=== PATIENT | male | born 1995 | race Caucasian/White ===

== ENCOUNTER 2021-05-01 12:47 | Outpatient (RCR) | payer BC, SELFPAY | END 2021-06-05 23:59 | LOC: IMMUN 12:47 | PROVIDERS: PCP Family Medicine; Referring Provider Family Medicine; Visit Provider Family Medicine | DX: Z23 Encounter for immunization (principal) ==

== ENCOUNTER 2024-11-26 00:12 | Emergency (ER) | payer BC, SELFPAY ==
[2024-11-26 00:13] VITALS: BP 163/94; PULSE 82; RESP 18; TEMP 36.9; O2SAT 98; BMI 26.4
--- NOTE | 2024-11-26 00:45 | EX.ED.VIS.EY ---
HPI History of Present Illness Chief Complaint: Eye Problem Informant: patient and spouse/S.O. Narrative Narrative: Patient is a 29-year-old male with history of hypertension. He denies any need for contact lenses or glasses. He states over the last 3 days he has felt like there has been something in the upper portion of his right eye. He denies any high risk activities such as grinding metal or chipping wood. He states he has noticed swelling to the right eyelid but denies any direct trauma. He denies any increased tearing or light sensitivity or change in vision. Secondary to the persistent symptoms he presents for evaluation [facility] Medical History (Updated 11/26/24 @ 04:[address] Ganga Alcocer, DO) HTN (hypertension) Medical History no medical history Home Medications ?Medication ?Instructions ?Recorded ?Last Taken ?Type benzonatate 200 mg capsule 200 mg PO TID PRN cough #14 caps 11/07/23 Unknown Rx methylprednisolone 4 mg tablets in See Rx Instructions PO PER PKG DIR 11/07/23 Unknown Rx a dose pack (Medrol (Pa)) #21 tabs ibuprofen 600 mg tablet 600 mg PO TID 11/26/24 Unknown History [id number] 3.5 2 drp RIGHT EYE 4X/DAY 10 days #5 11/26/24 Unknown Rx mg/mL-10,000 unit/mL-0.1% eye mL drops (Maxitrol) Allergy/AdvReac Type Severity Reaction Status Date / Time macadamia nut oil Allergy Severe Anaphylaxis Verified 11/26/24 00:13 Family History no significant family his Surgical History (Updated 11/04/23 @ 16:39 by Ann Stewart) No pertinent past surgical history Surgical History no surgical history Social History (Updated 11/04/23 @ 16:39 by Ann Stewart) Smoking Status: Never smoker alcohol intake: never substance use type: does not use ROS ROS ED Constitutional Constitutional ED: Denies chills or fever(s) Eyes Eyes: Reports other Details: Positive right eye pain ; Denies blurry vision or change in vision ENT ENT ED: Denies rhinorrhea or sore throat Cardiovascular Cardiovascular: Denies chest pain Respiratory/Chest Respiratory/Chest: Denies cough or dyspnea Gastrointestinal Gastrointestinal: Denies abdominal pain, diarrhea, nausea or vomiting Musculoskeletal Musculoskeletal: Denies myalgias Integumentary Reports other Details: Positive redness and swelling right eyelid Neurologic Neurologic: Denies headache(s) Hematologic/Lymphatic Hematologic/Lymphatic: Denies easy bleeding or easy bruising Allergic/Immunologic Allergic/Immunologic ED: Denies mouth swelling or tongue swelling EXAM Physical Exam Const Vital Signs: 11/26/24 00:13 Temperature 98.5 F Temperature Source Oral Pulse Rate 82 Respiratory Rate 18 Blood Pressure 163/94 H Blood Pressure Mean 117 Pulse Ox 98 Positive well nourished and well developed General Appearance ED: well developed HEENT HEENT Narrative: Normocephalic atraumatic Eyes PERRL and EOMs intact bilaterally Eyes Narrative: Pupils are equal reactive to light and accommodation and extraocular muscles are intact Bilateral conjunctiva are normal without findings of infection No scleral injection no increased tearing Upper lid was everted there is no foreign body Along the mid to medial portion of the right upper eyelid is a small internal hordeolum as well as some mild soft tissue erythema and swelling of the upper eyelid. No diffuse periorbital edema or erythema to suggest periorbital cellulitis Neck supple Neck Narrative: No nuchal rigidity or meningeal signs Resp normal respiratory effort and clear to auscultation bilaterally Cardio regular rate and regular rhythm Extremity normal to inspection Neuro oriented x3, CN's II-XII intact bilaterally, moves all extremities and no sensory deficits noted Sensorium / Orientation: alert Motor Exam: strength 5/5 throughout Psych mental status grossly normal Skin Skin Narrative: Soft tissue changes to the right upper eyelid as documented above MDM MDM MDM Narrative Medical decision making narrative: Patient presented to the ER hypertensive but has a past medical history of this. He denies any high risk activity and reported his symptoms are mainly in the right upper eyelid. By exam he does not have scleral injection or increased tearing or light sensitivity and my concern for corneal abrasion or corneal ulcer is low. On exam he does not have a hyphema and there is no report or signs of trauma so my concern for globe rupture is low as well. By physical exam he has a internal hordeolum which is consistent with the location of irritation and the fact that it is of the eyelid and not the actual globe. Therefore there is no need for further intervention. Patient will be instructed on warm compresses and placed on Maxitrol to help resolve the internal hordeolum but is otherwise safe for discharge with outpatient ophthalmology follow-up History & Record Review Discussion w/independent historian: Patient and Significant other Discharge Plan Triage Chief Complaint: Eye Problem ED Provider: Ganga Alcocer Dx/Rx/DC Orders Clinical Impression: Hordeolum internum of right upper eyelid, HTN (hypertension) Instructions: ED Stye Prescriptions: New neomycin-polymyxin B-dexameth [Maxitrol] 3.5mg/mL-10,000 unit/mL-0.1 % drops,suspension 2 drp RIGHT EYE 4X/DAY 10 Days Qty: 5 1RF No Action methylprednisolone [Medrol (Pa)] 4 mg tablets,dose pack See Rx Instructions PO PER PKG DIR Qty: 21 0RF Rx Instructions: PO PER PKG DIR benzonatate 200 mg capsule 200 mg PO TID PRN (Reason: cough) Qty: 14 0RF ibuprofen 600 mg tablet 600 mg PO TID Primary Care Provider: Carlitos Hagan Referrals: Carlitos Hagan MD [Primary Care Provider] - Nicanor Reis MD [Med Staff - Active Staff] - Activity Restrictions/Additional Instructions: Please use warm compresses 3-4 times a day as well as the eyedrops to resolve the right upper eyelid hordeolum. If there is no improvement after warm compresses and drops for 10 days you may need oral antibiotics. If oral antibiotics fail then you may need incision and drainage. If you develop a fever or noticed that the swelling and redness extend around the entire eye and stay that way then you may need reevaluated in the ER. Follow-up with your family doctor and/or ophthalmology for repeat evaluation Print Language: Somali Disposition Disposition: Home, Self Care Discharge Date/Time: 11/26/24 00:53
== END 2024-11-26 00:53 | disposition home or self-care (01) ==
LOC: ED 00:49
PROVIDERS: Emergency Provider Emergency Medicine; PCP Family Medicine; Visit Provider Emergency Medicine
DX: H00.021 Hordeolum internum right upper eyelid (principal); I10 Essential (primary) hypertension
CPT/HCPCS: 99282